=== PATIENT | male | born 1965 | race Caucasian/White ===

== ENCOUNTER 2020-06-14 06:01 | Emergency (ER) | payer BC, SELFPAY ==
[2020-06-14 06:11] VITALS: BP 149/97; PULSE 79; RESP 16; TEMP 36.9; O2SAT 97; BMI 47.5
[2020-06-14 06:31] LABS: Basophils # 0.1 10^3/uL (0.0-0.1); Basophils % 0.5 %; Eosinophils # 0.1 10^3/uL (0.0-0.8); Eosinophils % 1.1 %; Hematocrit 49.6 % (42.0-52.0); Hemoglobin 16.5 g/dL (11.7-16.6); Lymphocytes # 1.8 10^3/uL (0.8-4.8); Lymphocytes % 16.8 %; Mean Corpuscular HGB Conc 33.3 g/dL (30.0-36.0); Mean Corpuscular Hemoglobin 28.5 pg (28.0-34.0); Mean Corpuscular Volume 85.7 fL (80-94); Mean Platelet Volume 10.7 fL (7.4-10.4); Monocytes # 0.5 10^3/uL (0.2-0.9); Monocytes % 4.8 %; Neutrophils # 8.27 10^3/uL (1.8-7.7); Neutrophils % 76.3 %; Nucleated Red Blood Cells % 0 %; Platelet Count 286 10^3/cmm (130-400); Red Blood Count 5.79 10^6/uL (4.1-5.3); Red Cell Distribution Width 13.2 % (12.1-15.1); White Blood Count 10.8 10^3/uL (4.0-10.0)
--- NOTE | 2020-06-14 06:33 | ED_ITS ---
HPI - Abdominal Pain General: Chief Complaint: Abdominal Pain Stated Complaint: left sided abd pain/nausea Time Seen by Provider: 06/14/20 06:09 History of Present Illness: HPI narrative: 54-year-old male complaining of left lower quadrant pain for the last 2 days. Is been intermittent in nature initially. It first started yesterday morning and then worsened significantly overnight to the point where it woke him up from sleep. Denies dysuria urgency or frequency no diarrhea no hematochezia or melena. Patient denies use of alcohol. He has previously had a colonoscopy because of family history of colon cancer reports that he was told it was negative. This was done proximally 8 years ago. MD elicited complaint: abdominal pain Onset (ago): day(s) (2) Pain Consistency: constant Location: LLQ Severity: mild Quality: cramping Radiation: none Migration to: no migration Exacerbating factors: nothing Relieving factors: nothing Associated Symptoms: Reports GI cramping, nausea, poor appetite and vomiting; Denies anorexia, belching, bloating, change in bowel habits, change in stool character, chills, coffee ground emesis, constipation, diarrhea, dyspepsia, dysuria, excessive flatus, fever(s), heartburn, hematochezia, hematuria, hematemesis, fecal incontinence, loose stools, melena and syncope Review of Systems Const: Denies: fever(s) or chills ENMT: Denies: throat pain, ear or mastoid pain, nasal discharge or nasal congestion Card: Denies: syncope Resp: Denies: dyspnea, productive cough or non-productive cough GI: Reports: nausea, vomiting and GI cramping; Denies: hematemesis, coffee ground emesis, heartburn, diarrhea, constipation, bloating, belching, excessive flatus, fecal incontinence, change in bowel habits, change in stool character, hematochezia or melena : Denies: dysuria or hematuria Skin/Breast: Denies: rash or pruritus Physical Exam Const: COMMON NORMALS: no acute distress GENERAL APPEARANCE: cooperative and comfortable ORIENTATION/CONSCIOUSNESS: Yes awake, Yes oriented to person, Yes oriented to place and Yes oriented to time HENMT: COMMON NORMALS: normocephalic, atraumatic and hearing grossly normal bilaterally HEAD & SCALP: normocephalic and atraumatic Neck/C-Spine: COMMON NORMALS: no JVD Resp: COMMON NORMALS: normal respiratory effort, No retractions, No use of accessory muscles and clear to auscultation bilaterally AUSCULTATION: clear to auscultation bilaterally Cardio: COMMON NORMALS: no JVD, regular rate, regular rhythm and No murmurs present (Cardio) RATE: regular rate RHYTHM: regular rhythm GI: COMMON NORMALS: Soft to palpation and No hepatosplenomegaly present AUSCULTATION: Yes normoactive bowel sounds PALPATION: Yes Soft to palpation, No Tenderness to palpation present (GI), No Guarding due to palpation present (GI) and Yes No hepatosplenomegaly present : BLADDER/KIDNEY EXAM: Yes CVA tenderness Back/Pelvis: GENERAL BACK: Yes CVA tenderness CVA tenderness: left Extremity: COMMON NORMALS: normal to inspection, capillary refill normal, no clubbing, cyanosis or edema, no calf tenderness and no pedal edema Neuro: SENSORIUM/ORIENTATION: Yes oriented to person, Yes oriented to place and Yes oriented to time Skin: COMMON NORMALS: no rashes or lesions noted GENERAL SKIN EXAM: no rashes or lesions noted Course Vital Signs: Vital signs: Vital Signs Temperature 98.5 F 06/14/20 06:11 Pulse Rate 84 06/14/20 09:23 Respiratory Rate 18 06/14/20 09:23 Blood Pressure 131/77 06/14/20 09:23 Pulse Oximetry 94 06/14/20 09:23 MDM - Abdominal Pain MDM Narrative: Medical decision making narrative: CT shows 4 to 5 mm left proximal ureter stone. His pain is easily controlled with morphine suspect that this should pass on its own given its size we will discharge him home with a urine strainer and pain medications. We will also add tamsulosin 1.4 daily. Make arrangements for follow-up with urology.. Lab Data: Labs: Lab Results 06/14/20 06/14/20 06/14/20 Range/Units 06:25 06:25 06:25 WBC 10.8 H (4.0-10.0) 10^3/ uL RBC 5.79 H (4.1-5.3) 10^6/u L Hgb 16.5 (11.7-16.6) g/dL Hct 49.6 (42.0-52.0) % MCV 85.7 (80-94) fL MCH 28.5 (28.0-34.0) pg MCHC 33.3 (30.0-36.0) g/dL RDW 13.2 (12.1-15.1) % Plt Count 286 (130-400) 10^3/c mm MPV 10.7 H (7.4-10.4) fL Neut % (Auto) 76.3 % Lymph % (Auto) 16.8 % [place] % (Auto) 4.8 % Eos % (Auto) 1.1 % Baso % (Auto) 0.5 % Neut # (Auto) 8.27 H (1.8-7.7) 10^3/u L Lymph # (Auto) 1.8 (0.8-4.8) 10^3/u L [place] # (Auto) 0.5 (0.2-0.9) 10^3/u L Eos # (Auto) 0.1 (0.0-0.8) 10^3/u L Baso # (Auto) 0.1 (0.0-0.1) 10^3/u L Nucleated RBC % (a uto) 0 % Nucleated RBCs # 0.0 /100WBC Sodium 136 (136-145) mmol/L Potassium 3.9 (3.5-5.1) mmol/L Chloride 98 (98-107) mmol/L Carbon Dioxide 26 (22-29) mmol/L Anion Gap 15.9 (5-19) BUN 14 (6-20) mg/dL Creatinine 0.7 (0.7-1.2) mg/dL GFR Calculation 118.0 (90-130) mL/min Glucose 158 H (65-115) mg/dL Calculated Osmolal ity 286 (285-295) mOsm/k g Lactate 1.7 (0.5-2.2) mmol/L Calcium 9.5 (8.5-10.5) mg/dL Total Bilirubin 1.1 (0.15-1.2) mg/dL AST 43 H (0-40) U/L ALT 63 H (0-41) U/L Alkaline Phosphata se 63 (40-130) IU/L C-Reactive Protein 3.5 (0.0-4.9) mg/L Total Protein 8.2 (6.6-8.7) g/dL Albumin 4.7 (3.5-5.2) g/dL Globulin 3.5 (1.3-4.6) g/dL Lipase 18 (13-60) U/L Urine Color (Yellow) Urine Appearance (CLEAR) Urine pH (5-7) Ur Specific Gravit y (1.005-1.030) Urine Protein (Negative) Urine Glucose (UA) (Normal) Urine Ketones (Negative) Urine Blood (Negative) Urine Nitrate (Negative) Urine Bilirubin (Negative) Urine Urobilinogen (Negative) mg/dL Ur Leukocyte Letty ase (Negative) Urine RBC (0-2) /hpf Urine WBC (0-5) /hpf Ur Squamous Epith Cells (0-5) /hpf Amorphous Sediment Urine Bacteria (NONE) /hpf 06/14/20 Range/Units 07:51 WBC (4.0-10.0) 10^3/ uL RBC (4.1-5.3) 10^6/u L Hgb (11.7-16.6) g/dL Hct (42.0-52.0) % MCV (80-94) fL MCH (28.0-34.0) pg MCHC (30.0-36.0) g/dL RDW (12.1-15.1) % Plt Count (130-400) 10^3/c mm MPV (7.4-10.4) fL Neut % (Auto) % Lymph % (Auto) % [place] % (Auto) % Eos % (Auto) % Baso % (Auto) % Neut # (Auto) (1.8-7.7) 10^3/u L Lymph # (Auto) (0.8-4.8) 10^3/u L [place] # (Auto) (0.2-0.9) 10^3/u L Eos # (Auto) (0.0-0.8) 10^3/u L Baso # (Auto) (0.0-0.1) 10^3/u L Nucleated RBC % (a uto) % Nucleated RBCs # /100WBC Sodium (136-145) mmol/L Potassium (3.5-5.1) mmol/L Chloride (98-107) mmol/L Carbon Dioxide (22-29) mmol/L Anion Gap (5-19) BUN (6-20) mg/dL Creatinine (0.7-1.2) mg/dL GFR Calculation (90-130) mL/min Glucose (65-115) mg/dL Calculated Osmolal ity (285-295) mOsm/k g Lactate (0.5-2.2) mmol/L Calcium (8.5-10.5) mg/dL Total Bilirubin (0.15-1.2) mg/dL AST (0-40) U/L ALT (0-41) U/L Alkaline Phosphata se (40-130) IU/L C-Reactive Protein (0.0-4.9) mg/L Total Protein (6.6-8.7) g/dL Albumin (3.5-5.2) g/dL Globulin (1.3-4.6) g/dL Lipase (13-60) U/L Urine Color Straw (Yellow) Urine Appearance Clear (CLEAR) Urine pH 7 (5-7) Ur Specific Gravit y 1.005 (1.005-1.030) Urine Protein Neg (Negative) Urine Glucose (UA) Norm (Normal) Urine Ketones Negative (Negative) Urine Blood 3+ H (Negative) Urine Nitrate Negative (Negative) Urine Bilirubin Neg (Negative) Urine Urobilinogen Norm (Negative) mg/dL Ur Leukocyte Letty ase Negative (Negative) Urine RBC 15-25 H (0-2) /hpf Urine WBC Rare (0-5) /hpf Ur Squamous Epith Cells None (0-5) /hpf Amorphous Sediment Not Reportable Urine Bacteria Trace (NONE) /hpf Discharge Plan Discharge Patient Disposition: Home Clinical Impression: Calculus of kidney Condition: Stable Prescriptions: New hydrocodone-acetaminophen 5-325 mg tablet 1 tab PO Q6H PRN (Reason: pain) Qty: 25 RF: 0 Zofran 4 mg tablet 4 mg PO Q6H PRN (Reason: nausea and vomiting) Qty: 20 RF: 0 Discharge Orders: Discharge ED (Routine); Ordered 06/14/20 Ordered By: Edi Hobbs Discharge Diet: Usual diet Discharge Activity: Increase activity as tolerated Patient Instructions: Opioid Safety Activity Restrictions/Additional Instructions: Strain urine until stone is caught. Case management will call with an appointment for urology. Return if pain is uncontrollable. Coding Level of Care Code ED Firewall Administrator for Chg Fwd Exam Comprehensive
[2020-06-14 06:39] VITALS: BP 127/86; PULSE 71; RESP 17; O2SAT 94
[2020-06-14 06:47] LABS: Lactate (Lactic Acid level) 1.7 mmol/L (0.5-2.2)
[2020-06-14 06:48] LABS: Alanine Aminotransferase 63 U/L (0-41); Albumin Level 4.7 g/dL (3.5-5.2); Alkaline Phosphatase 63 IU/L (40-130); Anion Gap 15.9 (5-19); Aspartate Amino Transferase 43 U/L (0-40); Blood Urea Nitrogen 14 mg/dL (6-20); C Reactive Protein 3.5 mg/L (0.0-4.9); Calcium 9.5 mg/dL (8.5-10.5); Carbon Dioxide 26 mmol/L (22-29); Chloride 98 mmol/L (98-107); Globulin 3.5 g/dL (1.3-4.6); Glucose 158 mg/dL (65-115); Lipase 18 U/L (13-60); Osmolality Calculated 286 mOsm/kg (285-295); Potassium 3.9 mmol/L (3.5-5.1); Sodium 136 mmol/L (136-145); Total Bilirubin 1.1 mg/dL (0.15-1.2); Total Protein 8.2 g/dL (6.6-8.7)
--- NOTE | 2020-06-14 06:49 | CTR_ITS ---
PROCEDURE INFORMATION: Exam: CT Abdomen And Pelvis With Contrast Exam date and time: 06/14/2020 6:53 AM Age: 54 years old Clinical indication: Abdominal pain; Additional info: Abd pain TECHNIQUE: Imaging protocol: Computed tomography of the abdomen and pelvis with contrast. Radiation optimization: All CT scans at this facility use at least one of these dose optimization techniques: automated exposure control; mA and/or kV adjustment per patient size (includes targeted exams where dose is matched to clinical indication); or iterative reconstruction. Contrast material: OMNI 300; Contrast volume: 95 ml; Contrast route: INTRAVENOUS (IV); COMPARISON: No relevant prior studies available. RADIATION DOSE METRICS: Total DLP (mGy-cm): 2902.65 FINDINGS: Liver: Fatty infiltration of the liver. Gallbladder and bile ducts: Normal. No calcified stones. No ductal dilation. Pancreas: Normal. No ductal dilation. Spleen: Splenic granulomas are present. Adrenal glands: Normal. No mass. Kidneys and ureters: Dilatation of the left renal pelvis and proximal ureter secondary to a calcification within the proximal aspect of the left ureter. This measures approximately 4-5 mm. Stomach and bowel: Unremarkable. No obstruction. No mucosal thickening. Appendix: Appendix normal. Intraperitoneal space: No free fluid within the pelvis or within the dependent portions of the peritoneum. Vasculature: Flow within the superior mesenteric artery, celiac trunk and inferior mesenteric arteries. Lymph nodes: Calcified lymph node left infrahilar region. Urinary bladder: Unremarkable as visualized. Reproductive: Unremarkable as visualized. Bones/joints: Pars defect L5. Soft tissues: Unremarkable. Other findings: No acute intra-abdominal process. No inflammatory process. No obstruction. CT/CT abdomen pelvis w con* [id number] IMPRESSION: 1. No acute intra-abdominal process. No inflammatory process. No obstruction. 2. No free fluid within the pelvis or within the dependent portions of the peritoneum. 3. Dilatation of the left renal pelvis and proximal ureter secondary to a calcification within the proximal aspect of the left ureter. This measures approximately 4-5 mm. 4. Appendix normal. Radiation Dose CTDIVOL = (mGy): DLP = 2902.65 (mGy-cm)
[2020-06-14] MEDS: iohexol 300 mg/mL 100 mL Btl IV (07:01)
[2020-06-14 07:53] VITALS: BP 146/79; PULSE 59; RESP 18; O2SAT 96
[2020-06-14 08:13] LABS: Blood Urine 3+ (Negative); Glucose Urine UA Norm (Normal); Ketones Urine Negative (Negative); Protein Urine Neg (Negative); Specific Gravity, Urine 1.005 (1.005-1.030); Urine Appearance Clear (CLEAR); Urine Color Straw (Yellow); pH Urine 7 (5-7)
[2020-06-14 08:14] LABS: Add Urine Culture? Yes; Add Urine Microscopic? YES; Bacteria Urine TRACE /hpf; Bilirubin Urine Neg (Negative); Leukocyte Esterase Urine Negative (Negative); Nitrate Urine Negative (Negative); RBC Urine 15-25 /hpf (0-2); Urobilinogen Urine Norm (Negative); WBC Urine RARE /hpf (0-5)
[2020-06-14] MEDS: sodium chloride 0.9% 1,000 ML 999 ML IV (08:30)
[2020-06-14 08:32] VITALS: RESP 20; O2SAT 95
[2020-06-14] MEDS: morphine 4 mg/mL SDV 1 mL IVP (08:32)
[2020-06-14] MEDS: ondansetron 2 mg/ML SDV 2 mL 4 MG IVP (08:33)
[2020-06-14 09:23] VITALS: BP 131/77; PULSE 84; RESP 18; O2SAT 94
[2020-06-14 09:50] VITALS: BP 136/79; PULSE 78; RESP 18; O2SAT 94
--- NOTE | 2020-06-14 09:54 | PC.NURSE ---
[place] from [place] and said he will follow up with a urologist in [place]
--- NOTE | 2020-06-14 11:56 | DCPLANNER ---
wardrobe manager had message to schedule a follow up appointment scheduled for patient with Dr. Chaney. wardrobe manager called the office of Dr. Chaney, spoke with Carolann, gave clinic patients information. wardrobe manager was told that patients information would be printed and reviewed. Clinic will call patient with appointment information.
--- NOTE | 2020-06-15 08:24 | DCPLANNER ---
Patient has a follow up appointment scheduled for Monday, June 15, 2020 at 11:[address] Chaney. Clinic will call patient with appointment information.
--- NOTE | 2020-06-30 13:15 | DCPLANNER ---
Patient had a follow up appointment scheduled for 06.15.[address] Chaney - patient did not attend appointment.
== END 2020-06-14 09:58 | disposition home or self-care (01) ==
PROVIDERS: Emergency Medicine; Emergency Provider Family Medicine
DX: N20.0 Calculus of kidney (principal)
CPT/HCPCS: 74177; 80053; 81001; 83605; 83690; 85025; 86140; 87086; 96361; 96374; 96375; 99284; J2270; J2405; J7030; Q9967